=== PATIENT | male | born 1985 | race Caucasian/White ===

== ENCOUNTER 2017-09-21 02:07 | Emergency (ER) | payer OTHER ==
[~2017-09-21] VITALS: Ht 185.4 cm; Wt 99.8 kg
[2017-09-21] MEDS ORDERED: NORFLEX100MG PO (06:36)
[2017-09-21] MEDS ORDERED: KETO10TA2 PO (06:36)
== END 2017-09-21 06:44 | disposition home or self-care (01) ==
LOC: ER 02:07
DX: M54.5 Low back pain (principal)